=== PATIENT | female | born 2000 | race Caucasian/White ===

== ENCOUNTER 2021-11-27 01:16 | Emergency (ER) | payer SELFPAY ==
[~2021-11-27] VITALS: Ht 157.5 cm; Wt 81.0 kg
[2021-11-27 02:42] LABS: CLARITY URINE CLEAR (CLEAR); COLOR URINE YELLOW (YELLOW); KETONES URINE NEGATIVE (NEGATIVE); LEUKOCYTE ESTERASE URINE NEGATIVE (NEGATIVE); NITRITE URINE NEGATIVE (NEGATIVE); OCCULT BLOOD URINE 2+ (NEGATIVE); PROTEIN URINE NEGATIVE (NEGATIVE); SPECIFIC GRAVITY URINE 1.006 (1.005-1.030); UROBILINOGEN URINE 0.2 E.U./dL (0.2-1.0)
[2021-11-27 02:46] LABS: BASOPHILS % 0.5 % (0.0-2.0); EOSINOPHILS % 0.7 % (0.0-5.0); HEMATOCRIT. 34.6 % (36.0-48.0); HEMOGLOBIN. 11.5 g/dL (12.0-16.0); LYMPHOCYTES % 7.3 % (20.0-50.0); MEAN CORPUSCULAR HEMOGLOBIN 26.4 pg (28.0-32.0); MEAN CORPUSCULAR VOLUME 79.6 fL (81.0-99.0); MEAN PLATELET VOLUME 8.3 fl (7.4-10.4); MONOCYTES % 7.4 % (2.0-8.0); NEUTROPHILS % 84.1 % (40.0-76.0); PLATELET 243 x1000/uL (130-400); RED BLOOD CELL COUNT 4.34 mill/uL (4.2-5.4); RED CELL DISTRIBUTION WIDTH 16.7 % (11.6-14.6)
[2021-11-27 02:50] LABS: CHLORIDE 106 mEq/L (98-107)
[2021-11-27 02:55] LABS: ETHANOL BLOOD < 10 mg/dL
[2021-11-27 03:00] LABS: *AMPHETAMINES SCREEN URINE NEGATIVE (NEGATIVE); *BARBITURATES SCREEN URINE NEGATIVE (NEGATIVE); *BENZODIAZEPINES SCREEN URINE NEGATIVE (NEGATIVE); *COCAINE SCREEN URINE NEGATIVE (NEGATIVE)
[2021-11-27 03:02] LABS: CANNABINOID URINE SCREEN NEGATIVE (NEGATIVE); METHADONE URINE SCREEN NEGATIVE (NEGATIVE); OPIATES URINE SCREEN NEGATIVE (NEGATIVE); PHENCYCLIDINE URINE SCREEN NEGATIVE (NEGATIVE)
[2021-11-27] MEDS ORDERED: KETOROLAC 15MG/ML VIAL IV ONE (03:45)
[2021-11-27] MEDS ORDERED: METOCLOPRAMIDE HCL 10MG/2ML VIAL IV ONE (04:00)
[2021-11-27] MEDS ORDERED: KETOROLAC 60MG/2ML VIAL IM ONE (04:30)
[2021-11-27] MEDS ORDERED: METOCLOPRAMIDE HCL 10MG TABLET PO ONE (04:30)
[2021-11-27] MEDS ORDERED: MECL-159 MT (04:53)
[2021-11-27 05:11] VITALS: BP 132/85
[2021-11-27 05:17] LABS: HCG SCREEN NEGATIVE
== END 2021-11-27 05:14 | disposition home or self-care (01) ==
LOC: ER 01:16
DX: I73.00 Raynaud's syndrome without gangrene (principal); R51.9 Headache, unspecified; R42 Dizziness and giddiness; R11.10 Vomiting, unspecified
CPT/HCPCS: 36415; 70450; 80053; 80305; 80320; 81003; 81025; 84703; 85025; 96372; 99284; J1885; J8597; G0480